=== PATIENT | female | born 1950 | race Caucasian/White ===

== ENCOUNTER → 2017-09-09 | Outpatient (CLI) | payer OTHER ==
[~2017-09-09] MED LIST: ATOR20; ATOR40TA PO; Aspirin EC81 MG PO; BIOTIN-D1 GM PO; CALCIUM PO; CARV6.25 PO; CENTRUM SILVER1 EAC2 PO; CHOL10002 PO; CLOP75 PO; COQ1050 MG PO; Calcium Magnes1 EAC1 PO; KRILL OIL500 MG PO; LEVSOD125 PO; LISHYD1012 PO; LISI5 PO; LORA.5 PO; Nitrostat0.3 MG SL; OXYACE5T PO; PRAV20 PO; ROSU5 PO; TEMA15 PO; TEMA7.5; TRIHYD5075 PO; ZESTORETIC 20-121 EA PO; Zofran Odt4 MG SL
[2017-09-11 12:28] LABS: HPV Genotype 16 Not Detected (NOTDET); HPV Genotype 18 Not Detected (NOTDET)
[2017-09-17 19:48] LABS: HPV High Risk Other Detected (NOTDET)
== END | disposition home or self-care (01) ==
LOC: OLS 16:09
PROVIDERS: Obstetrics & Gynecology Gynecology
DX: R87.810 Cervical high risk human papillomavirus (HPV) DNA test positive (principal)
CPT/HCPCS: 87624; 88142

== ENCOUNTER → 2017-09-30 | Outpatient (CLI) | payer OTHER | END | disposition home or self-care (01) | LOC: PLD 07:51 | DX: R87.810 Cervical high risk human papillomavirus (HPV) DNA test positive (principal) | CPT/HCPCS: 88305 ==

== ENCOUNTER → 2018-04-24 | Outpatient (CLI) | payer OTHER ==
[2018-04-28 14:09] LABS: HPV 16 Negative (Negative); HPV 18 Negative (Negative); HPV OTHER HR TYPES Negative (Negative)
== END ==
LOC: LAB 13:20 → LAB SHORT 13:20
PROVIDERS: Obstetrics & Gynecology Gynecology
DX: Z91.89 Other specified personal risk factors, not elsewhere classified (principal)
CPT/HCPCS: 87624; G0123

== ENCOUNTER → 2019-04-29 | Outpatient (CLI) | payer OTHER ==
[2019-05-03 13:07] LABS: HPV 16 Negative (Negative); HPV 18 Negative (Negative); HPV OTHER HR TYPES Negative (Negative)
== END | disposition home or self-care (01) ==
LOC: LAB 14:59 → LAB SHORT 14:59
PROVIDERS: Obstetrics & Gynecology Gynecology
DX: Z91.89 Other specified personal risk factors, not elsewhere classified (principal)
CPT/HCPCS: 87624; G0123